=== PATIENT | female | born 1975 | race Caucasian/White ===

== ENCOUNTER → 2021-09-04 17:36 | Outpatient (CLI) | payer OTHER, SELFPAY ==
--- NOTE | 2021-09-04 17:40 | DI.RAD.S_ITS ---
PROCEDURE: XR FACIAL BONES MIN 3V INDICATIONS: hit by wooden doorstop to R zygomatic TECHNIQUE: 3 views of the facial bones were acquired. COMPARISON: None. FINDINGS: Sinuses: Visualized sinuses demonstrate no air-fluid levels or mucosal thickening. Bones: No suspicious bony lesions. Orbital rims and zygomatic arches appear intact. Right zygomatic arch is not well depicted Soft tissues: No suspicious soft tissue densities. IMPRESSION: Right zygomatic arch is not well depicted. Consider follow-up CT facial bones Approved by: Familia Torres M.D. on 09/04/2021 at 17:49
== END ==
PROVIDERS: Referring Provider Physician Assistant; Visit Provider Physician Assistant
DX: S00.83XA Contusion of other part of head, initial encounter (principal); W22.8XXA Striking against or struck by other objects, initial encounter
CPT/HCPCS: 70150

== ENCOUNTER → 2022-09-22 15:26 | Outpatient (CLI) | payer OTHER, SELFPAY | PROVIDERS: Visit Provider Physician Assistant | DX: R10.9 Unspecified abdominal pain (principal) | CPT/HCPCS: 87086 ==

== ENCOUNTER → 2025-06-01 17:10 | Outpatient (CLI) | payer OTHER, SELFPAY ==
--- NOTE | 2025-06-01 17:12 | DI.RAD.S_ITS ---
PROCEDURE: XR WRIST RT MIN 3V INDICATIONS: Right wrist strain TECHNIQUE: Four views of the right wrist were acquired. COMPARISON: None. FINDINGS: Bones: Remote avulsion fracture ulnar styloid process appreciated Joints: The joint spaces are normal in width and alignment without arthritic change. Soft tissues: No soft tissue abnormality. IMPRESSION: Remote avulsion fracture ulnar styloid process Dictated by: Marcelino Gongora M.D. on 06/02/2025 at 11:15 Approved by: Marcelino Gongora M.D. on 06/02/2025 at 11:16
== END ==
PROVIDERS: Referring Provider Nurse Practitioner Family; Visit Provider Nurse Practitioner Family
DX: S66.911A Strain of unspecified muscle, fascia and tendon at wrist and hand level, right hand, initial encounter (principal); S52.611A Displaced fracture of right ulna styloid process, initial encounter for closed fracture; X58.XXXA Exposure to other specified factors, initial encounter
CPT/HCPCS: 73110